=== PATIENT | female | born 1995 | race Caucasian/White ===

== ENCOUNTER 2017-11-10 14:50 | Inpatient (IN) | payer BC ==
[~2017-11-10] VITALS: Ht 157.5 cm; Wt 101.0 kg
[2017-11-10 16:53] LABS: HEMATOCRIT 41.5 % (36.0-46.0); HEMOGLOBIN 14.4 G/DL (11.9-15.5); MCH 29.4 PG (29.0-34.0); MCHC 34.7 G/DL (30.0-36.0); MCV 84.9 FL (83-99); PLATELET COUNT 313 K/uL (156-360); RBC DIS.WIDTH-CV 12.2 % (11.8-14.6); RBC DIS.WIDTH-SD 37.3 % (39-53); RED BLOOD COUNT 4.89 M/uL (3.80-5.20); WHITE BLOOD COUNT 23.3 K/uL (4.1-10.2)
[2017-11-10 17:10] LABS: CHLORIDE 109 mEq/L (99-109); POTASSIUM 3.4 mEq/L (3.7-5.4); SODIUM 140 mEq/L (136-147)
[2017-11-10 17:12] LABS: GLUCOSE 111 mg/dL (70-99)
[2017-11-10 17:15] LABS: CREATININE 0.8 mg/dL (0.6-1.3); GFR ESTIMATE (CALCULATED) > 59 mL/min/
[2017-11-10 17:16] LABS: UREA NITROGEN (BUN) 13 mg/dL (9-23)
[2017-11-10 17:26] LABS: QUANTITATIVE HCG < 4.0 MIU/ML
[2017-11-10] MEDS ORDERED: PRENATAL TABLE1 EACH PO (17:50)
[2017-11-10] MEDS ORDERED: CYANOCOBALAM1000 MCG PO (17:50)
[2017-11-11 02:13] VITALS: BP 123/77
[2017-11-11 09:16] VITALS: BP 126/78
[2017-11-11 12:10] VITALS: BP 138/72
[2017-11-11 15:57] VITALS: BP 125/70
[2017-11-12 00:06] VITALS: BP 113/71
[2017-11-12 07:16] LABS: HEMATOCRIT 29.3 % (36.0-46.0); MCV 87.5 FL (83-99)
[2017-11-12 07:26] LABS: HEMOGLOBIN 9.9 G/DL (11.9-15.5)
[2017-11-12 08:20] VITALS: BP 120/76
[2017-11-12 16:52] VITALS: BP 134/78
[2017-11-12 23:22] VITALS: BP 116/59
[2017-11-13 08:30] VITALS: BP 119/62
[2017-11-13 16:30] VITALS: BP 119/69
[2017-11-13 23:40] VITALS: BP 119/68
[2017-11-14 08:08] VITALS: BP 120/69
[2017-11-14] MEDS ORDERED: LOVENOX40 MG/0.4 SC (09:30)
[2017-11-14] MEDS ORDERED: METOCLOPRAMIDE10 MG PO (09:30)
[2017-11-14] MEDS ORDERED: ENDOCET 5-3251 EACH PO (09:30)
== END 2017-11-14 15:36 | disposition home or self-care (01) | DRG 481 ==
LOC: EME 14:50 → SDC 19:55 → 3EAST 11-11 00:06 → 2SOUTH 11-11 00:06 → ENRESERV 11-11 00:14 → 3EAST 11-11 01:56
PROVIDERS: Nurse Practitioner Family; Physician Assistant
PROC: 0QS606Z Reposition Right Upper Femur with Intramedullary Internal Fixation Device, Open Approach (ICD-10-PCS; principal; 2017-11-11)
DX: S72.301A Unspecified fracture of shaft of right femur, initial encounter for closed fracture (principal); V00.321A Fall from snow-skis, initial encounter; Y93.23 Activity, snow (alpine) (downhill) skiing, snowboarding, sledding, tobogganing and snow tubing; D72.829 Elevated white blood cell count, unspecified; R20.0 Anesthesia of skin; F12.90 Cannabis use, unspecified, uncomplicated; F16.90 Hallucinogen use, unspecified, uncomplicated; E66.01 Morbid (severe) obesity due to excess calories; Z68.41 Body mass index [BMI] 40.0-44.9, adult
CPT/HCPCS: 73552; 76000; 80048; 84702; 84702 90; 85014; 85018; 85027; 97530 GP; 99281; 99285; C1713; J0131; J0690; J1100; J1170; J1650; J2250; J2270; J2405; J2710; J2765; J3010